=== PATIENT | male | born 2000 | race Caucasian/White ===

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

== ENCOUNTER 2022-08-03 09:19 | Emergency (ER) | payer OTHER, BC, SELFPAY ==
--- NOTE | ~2022-08-03 | XR_ITS ---
XR forearm RT 2V 08/03/2022 10:20 INDICATION: Right arm trauma. Pain. PROCEDURE: 2 views right forearm COMPARISON: No prior studies for comparison. FINDINGS: Fracture, dislocation or subluxation is not identified. The soft tissues appear within norm al limits. No foreign bodies are identified. IMPRESSION: 1: NO ACUTE BONE OR JOINT ABNORMALITY IDENTIFIED. Reviewed, dictated and finalized at location L.
--- NOTE | 2022-08-03 09:23 | ED.UPPEXIN ---
HPI - Extremity Injury (Upper) General Chief Complaint: Extremity Injury, Upper Stated Complaint: R FOREARM INJURY Time Seen by Provider: 08/03/22 09:29 Source: patient and RN notes reviewed Mode of arrival: ambulatory Limitations: no limitations History of Present Illness HPI narrative: 22-year-old male presents with concern for right forearm injury. Reports on Tuesday while at work a clothing rack fell on his forearm. Reports he had a small bruise. Reports over the last several days the bruise has gotten larger. He reports his entire forearm is tender. 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 He reports he used ice, he denies any other intervention. Related Data Home Medications Medication Instructions Recorded Confirmed sertraline 100 mg tablet 100 mg 09/29/20 Allergies Allergy/AdvReac Type Severity Reaction Status Date / Time No Known Allergies Allergy Verified 09/29/20 16:36 Review of Systems Review of Systems: CONSTITUTIONAL: Denies malaise, chills, sweats, or fever. SKIN: Denies rash or itching, open skin, laceration, abrasion, redness, warmth, swelling. MUSCULOSKELETAL: Reports right forearm pain and bruising NEUROLOGIC: Denies numbness, weakness All systems reviewed & are unremarkable except as noted in HPI and below PMFSH Comments At time of signature, agree with nursing past medical, surgical, social and family history. There is no relevant family history pertinent to the presenting complaint Exam Narrative: GENERAL: Well-appearing, well-nourished, and in no acute distress. HEAD: Normocephalic, atraumatic. EYES: PERRLA, conjunctivae clear NECK: Supple. CHEST: Speaks in full sentences. No respiratory distress. HEART: Regular rate and rhythm. Normal and equal peripheral pulses. EXTREMITIES: Right forearm has normal strength and sensation, grossly normal range of motion. No edema. Approximately 8 cm x 5 cm area of ecchymosis to the volar forearm. 5/5 strength with digit flexion and extension. Normal sensation with sensitivity to light touch and pain. General for tenderness. No open wounds, no skin tenting, no devitalized tissue or atrophy, no trophic changes, no obvious deformity, alignment normal, nearby joints and structures intact. Distal pulses palpable and equal bilaterally, skin warm, dry, pink. Capillary refill less than 3 seconds. SKIN: Warm, dry, no rash. NEURO: Alert and oriented x3. PSYCH: Normal mood and affect Course Course Emergency Course: Patient is aware of diagnosis, understands and agrees to treatment plan. Anticipatory guidance given. Patient agrees to follow-up as directed and is aware of reasons to seek care at the emergency department. Portions of this record may have been created with voice recognition software Level of Care: Express Care Visit Vital Signs Vital signs: Reviewed. MDM - Extremity Injury (Upper) MDM Narrative Medical decision making narrative: Patients injury and pain is consistent with musculoskeletal etiology. No signs of neurological or vascular compromise on exam. Compartments and tissues are soft without signs of compartment syndrome. Pain is felt appropriate for further evaluation on an outpatient basis. Imaging Data My impression: Images reviewed, interpreted by radiologist, agree, see report. Radiologist's impression: XR forearm RT 2V 08/03/2022 10:20 INDICATION: Right arm trauma. Pain. PROCEDURE: 2 views right forearm COMPARISON: No prior studies for comparison. FINDINGS: Fracture, dislocation or subluxation is not identified. The soft tissues appear within normal limits.? No foreign bodies are identified. IMPRESSION: 1: NO ACUTE BONE OR JOINT ABNORMALITY IDENTIFIED. Critical Care Time Critical Care Time Critical Care Time: No Discharge Plan Discharge Clinical Impression: Contusion of arm, right Patient Disposition: Home, Self-Care Condition: Stable Instructions: Contusion in Adults (ED) Addit
[2022-08-03 09:30] VITALS: BP 125/70; PULSE 76; RESP 16; TEMP 36.4; O2SAT 99
== END 2022-08-03 10:39 | disposition home or self-care (01) ==
PROVIDERS: Emergency Provider Nurse Practitioner
DX: S50.11XA Contusion of right forearm, initial encounter (principal); W20.8XXA Other cause of strike by thrown, projected or falling object, initial encounter; Y99.0 Civilian activity done for income or pay
CPT/HCPCS: 73090; 99213; G0463

== ENCOUNTER 2023-01-26 11:24 | Emergency (ER) | payer OTHER, BC, SELFPAY ==
[2023-01-26 11:34] VITALS: BP 104/70; PULSE 83; RESP 16; TEMP 36.3; O2SAT 100
--- NOTE | 2023-01-26 11:37 | ED.BACK ---
HPI - Back Pain/Injury General Chief Complaint: Back Pain/Injury Stated Complaint: L SIDED ABD PAIN/INJURY Time Seen by Provider: 01/26/23 11:32 Source: patient and RN notes reviewed History of Present Illness HPI Narrative: Patient is a 22-year-old male who presents to urgent care with complaints of left-sided abdominal pain. Patient states he was lifting a 60 lb tire at work and felt a pull on the left side of his abdomen. Patient states that he has not had any nausea or vomiting. Patient has not taken anything for pain prior to arrival. States it happened approximately 20 minutes prior to his arrival at the facility. Patient works at [employer]. No other acute complaints. No acute distress noted. Patient aware of the plan of care. Some parts of this dictation were generated by voice recognition software and may contain typographical and/or grammatical inaccuracies. Related Data Home Medications Medication Instructions Recorded Confirmed sertraline 100 mg tablet 100 mg PO DAILY 09/29/20 01/26/23 Allergies Allergy/AdvReac Type Severity Reaction Status Date / Time No Known Allergies Allergy Verified 01/26/23 11:34 Review of Systems Review of Systems: CONSTITUTIONAL: Denies fever, chills, or sweats. EYES: Denies visual changes, redness, or discharge. ENT: Denies rhinorrhea, congestion, sore throat, or otalgia. CARDIOVASCULAR: Denies chest pain, palpitations, or edema. RESPIRATORY: Denies cough or dyspnea. GASTROINTESTINAL: Reports of left lower abdominal discomfort GENITOURINARY: Denies dysuria or hematuria. SKIN: Denies rash or itching. MUSCULOSKELETAL: Denies back pain, joint pain, or myalgia. NEUROLOGIC: Denies headache, numbness, or weakness. All other systems reviewed are negative, except as documented in HPI. PMFSH Comments At the time of my signature, I reviewed and agree with the nursing past medical, surgical, social, and family history. There is no relevant family history pertinent to the patient complaint. Exam Narrative: GENERAL: This is a well-nourished, well-developed patient, in no apparent distress. HEAD: normocephalic, atraumatic. EYES: PERRL. Sclera clear/white. Vision is grossly intact. EARS: External ears normal NOSE: External nose normal with no obvious nasal discharge, nares without redness, no rhinorrhea. THROAT: Mucous membranes moist, posterior pharynx clear. NECK: Neck supple, GASTROINTESTINAL: Rebound tenderness to left lower quadrant with palpation. Bowel sounds within normal limits. Pain exacerbated with movement SKIN: warm, intact with no suspicious lesions or rash, good texture and turgor. NEURO: awake, alert, and oriented to person, place and time. There were no obvious focal neurologic abnormalities. EXTREMITIES: No clubbing, cyanosis, or edema. Course Course Level of Care: Express Care Visit Vital Signs Vital signs: Vital Signs Temperature 97.3 F L 01/26/23 11:34 Pulse Rate 83 01/26/23 11:34 Respiratory Rate 16 01/26/23 11:34 Blood Pressure 104/70 01/26/23 11:34 Pulse Oximetry 100 01/26/23 11:34 Temperature 97.3 F L 01/26/23 11:34 Pulse Rate 83 01/26/23 11:34 Respiratory Rate 16 01/26/23 11:34 Blood Pressure 104/70 01/26/23 11:34 Pulse Oximetry 100 01/26/23 11:34 Reviewed MDM - Back Pain/Injury MDM Narrative Medical decision making narrative: Advised patient to avoid any heavy lifting until pain has subsided. Use Tylenol/ibuprofen as needed. May use ice or heating pad. Avoid strenuous activity. If you need a release to work or restriction she will need to follow-up with your primary care doctor. If you develops any increase in symptoms associated with increased pain, nausea or vomiting-go to the emergency room. Follow-up with your PCP within 2-5 days or for worsening symptoms or failure to improve. Differential Diagnosis Differential diagnosis: Likely lumbar radiculopathy, sciatica, strain of lumbar region, r
== END 2023-01-26 11:48 | disposition home or self-care (01) ==
PROVIDERS: Emergency Provider Nurse Practitioner Family
DX: S39.011A Strain of muscle, fascia and tendon of abdomen, initial encounter (principal); X50.0XXA Overexertion from strenuous movement or load, initial encounter; Y99.0 Civilian activity done for income or pay
CPT/HCPCS: 99212; G0463

== ENCOUNTER 2023-06-17 11:00 | Emergency (ER) | payer OTHER, SELFPAY ==
[2023-06-17 11:10] VITALS: BP 121/79; PULSE 81; RESP 16; TEMP 36.7; O2SAT 100
--- NOTE | 2023-06-17 14:16 | ED.GENADULT ---
HPI - General Adult General Chief complaint: Dizziness Stated complaint: dizzy,shaky,SOB,arm/legs weak Source: patient, RN notes reviewed and old records reviewed Mode of arrival: ambulatory Limitations: no limitations History of Present Illness HPI narrative: 23 year old male to Express Care for dizziness, shaking, generalized weakness that started just prior to arrival. 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 Pt states he dropped the knife he was holding and had a near syncopal episode. Patient history of autism. Patient's mother picked patient up from work and brought him to [facility]. Patient denies any pertinent medical history, recent illness, allergies. Upon arrival patient denies chest pain, shortness of breath, visual changes, nausea or vomiting. Patient ambulated into express care. During registration patient is diaphoretic, pale. Respirations even and nonlabored. Patient and patient's mother that he needs to be seen in the emergency department and calling 911 for transport was recommended. Patient and mother declined EMS transport. Prefer travel by private vehicle to [facility]. Report called to Viviana OCASIO. Related Data Home Medications Medication Instructions Recorded Confirmed sertraline 100 mg tablet 100 mg PO DAILY 09/29/20 06/17/23 omeprazole magnesium 20 mg 20 mg PO DAILY 06/17/23 06/17/23 tablet,delayed release (Prilosec OTC) Allergies Allergy/AdvReac Type Severity Reaction Status Date / Time No Known Allergies Allergy Verified 06/17/23 11:11 Review of Systems Review of Systems: All systems reviewed & are unremarkable except as noted in HPI and below Constitutional: Constitutional: Reports as per HPI, Reports excessive sweating, Denies fever(s), Denies headache(s) and Reports weakness Eyes: Eyes: Reports as per HPI and Denies change in vision ENT: Reports system reviewed and no additional complaints, except as documented Cardiovascular: Cardiovascular: Reports as per HPI, Denies chest pain and Denies dyspnea Respiratory: Respiratory: Reports no additional respiratory complaints, Denies cough and Denies dyspnea Gastrointestinal: Gastrointestinal: Reports as per HPI, Denies abdominal pain, Denies change in stool character, Denies diarrhea, Denies nausea and Denies vomiting Musculoskeletal: Musculoskeletal: Reports as per HPI and Denies abnormal gait Neurologic: Reports as per HPI, Denies abnormal gait, Reports dizziness and Reports weakness Psychiatric: Psychiatric: Reports no additional psychiatric complaints PMFSH Comments At the time of my signature, I reviewed and agree with the nursing past medical, surgical, social, and family history. There is no relevant family history pertinent to the patient complaint. Exam Const: General: cooperative, no acute distress, alert, awake, anxious, diaphoretic, ill appearing, tired appearing, uncomfortable and well nourished Nutritional Appearance: well nourished Orientation/consciousness: patient oriented x3 Limitations: no limitations HENMT: Head: normal to inspection Ears: external ears normal Face/Nose/Sinus: Normal external nose present, Normal nares present, normal facial exam, No erythema and No edema Face and sinus: normal facial exam, no erythema and no edema Mouth: Yes Normal oral and palatal mucosa present Eyes: General: appearance normal, both eyes and all related structures Neck: Neck: normal visual inspection, full ROM and no meningeal signs Lymphatic: no lymphadenopathy noted and no lymphedema noted Chest: Chest palpation & inspection: normal inspection of the chest Resp: Effort & Inspection: normal respiratory effort and able to speak in complete sentences Auscultation: clear to auscultation bilaterally Cardio: Jugular venous distension: no JVD Rate: regular rate Rhythm: regular rhythm Ba
== END 2023-06-17 11:17 | disposition short-term general hospital (02) ==
LOC: EXPGOSH 11:05
PROVIDERS: Emergency Provider Nurse Practitioner Family
DX: R42 Dizziness and giddiness (principal); R55 Syncope and collapse; R61 Generalized hyperhidrosis; R53.1 Weakness; F84.0 Autistic disorder
CPT/HCPCS: 99212; G0463

== ENCOUNTER 2023-06-17 11:40 | Emergency (ER) | payer OTHER, SELFPAY ==
[2023-06-17] VITALS (12 sets, daily range): BP systolic 116–148; BP diastolic 59–94; PULSE 60–93; RESP 10–21; TEMP 36.1–36.7; O2SAT 97–100
--- NOTE | 2023-06-17 11:42 | ECG_ITS ---
Measurements Intervals [place] Rate: 68 P: 16 WV: 131 QRS: 43 QRSD: 121 T: 30 QT: 362 QTc: 386 Interpretive Statements SINUS RHYTHM RIGHT BUNDLE BRANCH BLOCK MINIMAL Q WAVES- INFERIOR LEADS BASELINE ARTIFACT- I, II, AVR ABNORMAL ECG NO PREVIOUS ECG AVAILABLE FOR COMPARISON Electronically Signed On 06-17-2023 12:00:25 CDT by Navid Feliciano D.O.
[2023-06-17 12:02] LABS: Basophils Percent Auto 0.4 % (0.2-1.2); Eosinophils Percent Auto 0.1 % (0-4.4); Hematocrit 50.4 % (42.0-52.0); Hemoglobin 16.5 g/dL (14.0-18.0); Immature Granulocyte Absolute 0.06 K/mm3 (0.00-0.031); Immature Granulocyte Percent A 0.7 % (0-0.5); Lymphocytes Absolute Auto 1.74 K/mm3 (0.9-3.2); Lymphocytes Percent Auto 20.5 % (18.3-44.2); Mean Corpuscular HGB Conc 32.7 g/dl (32-36); Mean Corpuscular Volume 82.6 fl (80-100); Mean Platelet Volume 10.8 fl (7.4-10.4); Monocytes Absolute Auto 0.8 K/mm3 (0.1-0.6); Monocytes Percent Auto 9.8 % (2.6-8.5); Neutrophils Absolute Auto 5.8 K/mm3 (1.3-6.7); Neutrophils Percent Auto 68.5 % (45.5-73.1); Platelet Count Result 213 k/mm3 (150-375); Red Cell Distribution Width 13.4 % (11.5-14.5); White Blood Count 8.5 K/mm3 (4.5-10.0)
[2023-06-17 12:10] LABS: Alanine Aminotransferase 52 U/L (6-50); Albumin Level 4.7 g/dL (3.5-5.1); Alkaline Phosphatase 63 U/L (38-126); Anion Gap 7 mmol/L (4-12); Aspartate Amino Transferase 34 U/L (17-59); Bilirubin,Total 0.6 mg/dL (0.2-1.3); Blood Urea Nitrogen 11 mg/dL (9-20); Calcium 9.7 mg/dL (8.4-10.2); Carbon Dioxide 28 mmol/L (22-30); Chloride 103 mmol/L (98-107); Estimated CRCL calculation 167 ml/min; Estimated Glomerular Filt Rate > 60; Glucose 122 mg/dL (65-110); Potassium 4.3 mmol/L (3.4-5.0); Sodium 138 mmol/L (137-145)
--- NOTE | 2023-06-17 12:22 | ED.DIZZY ---
HPI - Dizziness General Chief Complaint: Syncope Stated Complaint: near syncope from UC Time Seen by Provider: 06/17/23 11:56 History of Present Illness HPI Narrative: 23-year-old male presents emergency department for evaluation of near syncope. Patient reports he had 2 days of nausea and vomiting. While patient was at work today he felt dizzy and lightheaded. during examination patient is resting in bed reports he does still feel some dizziness. Related Data Home Medications Medication Instructions Recorded Confirmed sertraline 100 mg tablet 100 mg PO DAILY 09/29/20 06/17/23 omeprazole magnesium 20 mg 20 mg PO DAILY 06/17/23 06/17/23 tablet,delayed release (Prilosec OTC) Allergies Allergy/AdvReac Type Severity Reaction Status Date / Time No Known Allergies Allergy Verified 06/17/23 11:11 Review of Systems Review of Systems: All systems reviewed & are unremarkable except as noted in HPI and below Exam Narrative: APPEARANCE: Well appearing, no pain, no distress, well-nourished. HEAD: normocephalic, atraumatic. EYES: PERRLA/EOMI, conjunctivae clear. NOSE: Normal no drainage EARS:TMS clear with good light reflex. THROAT: Pharynx clear, no exudate. NECK: Supple. No adenopathy, no masses. RESPIRATORY: Airway patent, respirations nonlabored. Clear to auscultation bilaterally, no rales, rhonchi, wheezing. CARDIOVASCULAR: Regular rate and rhythm without murmurs rubs or gallops. ABDOMINAL: Soft, nontender, nondistended, normal bowel sounds MUSCULOSKELETAL: Moves all extremities. Strength/ROM intact, No edema, No calf tenderness. NEURO: Alert. Cranial nerves II through XII intact. Grossly intact SKIN: Warm, dry. Normal Color Course Course Emergency Course: patient felt improved with treatment and was discharged to Vital Signs Vital signs: Vital Signs Temperature 96.9 F L 06/17/23 11:45 Pulse Rate 73 06/17/23 11:45 Respiratory Rate 12 06/17/23 11:45 Pulse Oximetry 99 06/17/23 11:45 Oxygen Delivery Room Air 06/17/23 11:45 Temperature 98.0 F 06/17/23 14:30 Pulse Rate 73 06/17/23 14:30 Respiratory Rate 18 06/17/23 14:30 Blood Pressure 121/79 06/17/23 14:30 Pulse Oximetry 100 06/17/23 14:30 Oxygen Delivery Room Air 06/17/23 11:45 MDM - Dizziness MDM Narrative Medical decision making narrative: 23-year-old male present to the emergency department for evaluation after having a near syncopal episode at work today. On re-evaluation patient does feel improved. Patient is afebrile with no leukocytosis and a stable hemoglobin of 16.5, no acute abnormalities on the patient's CMP patient was negative for influenza RSV and for COVID. Patient was treated with a L of normal saline and does feel improved. Suspect dehydration secondary to his previous episodes of nausea and vomiting. Patient and family were updated on the results of the workup patient was advised to follow a clear liquid diet for the next 1-3 days and treat any additional nausea vomiting with Zofran. All questions concerns were addressed Differential Diagnosis Differential diagnosis: Likely orthostatic hypotension and other ( dehydration, nausea vomiting diarrhea, viral syndrome) Lab Data Attestation: I reviewed the patient's lab results. 06/17/23 11:51 06/17/23 11:51 Labs: Lab Results 06/17/23 06/17/23 Range/Units 11:51 12:24 WBC 8.5 (4.5-10.0) K/mm3 RBC 6.10 (4.6-6.20) M/mm3 Hgb 16.5 (14.0-18.0) g/dL Hct 50.4 (42.0-52.0) % MCV 82.6 (80-100) fl MCH 27.0 (26-34) pg MCHC 32.7 (32-36) g/dl RDW 13.4 (11.5-14.5) % Plt Count 213 (150-375) k/mm3 MPV 10.8 H (7.4-10.4) fl Immature Gran % (Auto) 0.7 H (0-0.5) % Neut % (Auto) 68.5 (45.5-73.1) % Lymph % (Auto) 20.5 (18.3-44.2) % Carver % (Auto) 9.8 H (2.6-8.5) % Eos % (Auto) 0.1 (0-4.4) % Baso % (Auto) 0.4 (0.2-1.2) % Lymph # (Auto) 1.74 (0.9-3.2)
[2023-06-17] MEDS: SODIUM CHLORIDE 0.9% IV 1,000 ML 999 ML IV CONT (12:28)
[2023-06-17 13:12] LABS: Influenza A QL RT-PCR Negative (Negative); Influenza B QL RT-PCR Negative (Negative); RSV RNA, RT-PCR Negative (Negative); SARS-CoV-2 RNA PCR Negative (Negative)
== END 2023-06-17 14:49 | disposition home or self-care (01) ==
PROVIDERS: Emergency Medicine; Emergency Provider Emergency Medicine
DX: R55 Syncope and collapse (principal); Z20.822 Contact with and (suspected) exposure to COVID-19; I45.10 Unspecified right bundle-branch block
CPT/HCPCS: 36415; 80053; 85025; 87637; 93005; 96360; 99284; J7030

== ENCOUNTER 2024-11-26 09:38 | Emergency (ER) | payer BC, SELFPAY ==
--- NOTE | 2024-11-26 09:41 | ED_ITS ---
HPI - General Adult General Chief complaint: Dental/Oral Stated complaint: Jaw locked up Time Seen by Provider: 11/26/24 09:54 Source: patient, RN notes reviewed and old records reviewed Mode of arrival: ambulatory Limitations: no limitations History of Present Illness HPI narrative: 24-year-old male presents to the [facility] with left jaw pain, at TMJ. States that started this morning. Did take 1 ibuprofen just prior to arrival. Related Data Home Medications ?Medication ?Instructions ?Recorded ?Confirmed ?Last Taken ?Type sertraline 100 mg tablet 100 mg PO DAILY 09/29/2011/12 Unknown History omeprazole magnesium 20 mg 20 mg PO DAILY 06/17/2311/12 Unknown History tablet,delayed release (Prilosec OTC) Allergies Allergy/AdvReac Type Severity Reaction Status Date / Time No Known Allergies Allergy Verified 11/26/24 09:50 Review of Systems 2 Review of Systems: All systems reviewed & are unremarkable except as noted in HPI and below Constitutional: Constitutional: Reports no additional constitutional complaints ENT: Reports as per HPI Cardiovascular: Cardiovascular: Reports no additional cardiovascular complaints, Denies chest pain and Denies dyspnea Respiratory: Respiratory: Reports no additional respiratory complaints, Denies chest congestion, Denies cough and Denies dyspnea Musculoskeletal: Musculoskeletal: Reports no additional musculoskeletal complaints Integumentary/Breasts: Skin/Breast: Reports system reviewed and no additional complaints, except as docu PMFSH Comments At the time of my signature, I reviewed and agree with the nursing past medical, surgical, social, and family history. There is no relevant family history pertinent to the patient complaint. Exam 2 Const: General: cooperative, healthy appearing, comfortable, no acute distress, well developed, alert and well nourished Nutritional Appearance: w ell nourished and obese Orientation/consciousness: patient oriented x3 L imitations: no limitations HENMT: Head: normal to inspection Head images: 1. Tenderness to palpation. Pain with opening and closing. Limited range of motion secondary to pain. No swelling. Denies trauma. Fair dentition Ears: hearing grossly normal bilaterally, external ears normal, TM's normal bilaterally, EAC's normal, mastoids normal and no periauricular adenopathy M outh: Yes Normal oral and palatal mucosa present, Yes lip normal, Yes tongue normal and Yes moist mucous membranes Throat: posterior oropharynx normal Eyes: General: appearance normal, both eyes and all related structures A lignment and Position: alignment normal Neck: Neck: normal visual inspection, full ROM, no lymphadenopathy and no meningeal signs Chest: Chest palpation & inspection: normal inspection of the chest Resp: Effort & Inspection: normal respiratory effort and able to speak in complete sentences Auscultation: clear to auscultation bilaterally, no crackles, no rales, no rhonchi and no wheezes Cardio: Rate: regular rate Skin: General skin exam: normal color and no rashes or lesions noted Neuro: General: patient oriented x3, gait normal, moves all extremities and no meningeal signs Cognition (Neuro): normal cognition Speech: normal speech Gait exam (Neuro): Normal gait present Extrem: General: normal to inspection, full ROM, capillary refill normal and normal gait Psych: Appearance: grossly normal and well kempt Mental Status: mental status grossly normal Speech and movement: Normal speech and movement present and Clear speech present Affect: normal affect Attitude: cooperative Course Course Level of Care: Express Care Visit Vital Signs Vital signs: Vital Signs Temperature 97.2 F L 11/26/24 09:49 Pulse Rate 80 11/26/24 09:49 Respiratory Rate 16 11/26/24 09:49 Blood Pressure 119/83 11/26/24 09:49 Pulse Oximetry 100 11/26/24 09:49 Oxygen Delivery Room Air 11/26/24 09:49 Temperature 97.2 F L 11/26/24 09:49 Pulse Rate 80 11/26/24 09:49 Respiratory Rate 16 11/26/24 09:49 Blood Pressure 119/83 11/26/24 09:49 Pulse Oximetry 100 11/26/24 09:49 Oxygen Delivery Room Air 11/26/24 09:49 Reviewed Medical Decision Making MDM Narrative Medical decision making narrative: Patient presents with his mom. Left TMJ tenderness. Reports swollen however note in swelling is noted. Denies any injury. Pain with opening and closing. Limited range of motion is noted. Patient is appropriate for outpatient treatment with close follow-up with a dental provider. Baclofen and ibuprofen recommended Discharge instructions reviewed with patient, as well as provided in writing per nursing staff. The instructions also include specific and strict return/GO TO THE ER as well as f/u information. All questions have been answered, and the patient deny any further questions with discharge and discharge plan. Some parts of this dictation were generated by voice recognition software and may contain typographical and/or grammatical inaccuracies. Differential Diagnosis Differential Diagnosis: TMJ, otitis media, dental infection Medical Records Medical records reviewed: Yes I reviewed the external patient's medical records. Vital Signs Vital Signs: Vital Signs Temperature 97.2 F L 11/26/24 09:49 Pulse Rate 80 11/26/24 09:49 Respiratory Rate 16 11/26/24 09:49 Blood Pressure 119/83 11/26/24 09:49 Pulse Oximetry 100 11/26/24 09:49 Oxygen Delivery Room Air 11/26/24 09:49 Temperature 97.2 F L 11/26/24 09:49 Pulse Rate 80 11/26/24 09:49 Respiratory Rate 16 11/26/24 09:49 Blood Pressure 119/83 11/26/24 09:49 Pulse Oximetry 100 11/26/24 09:49 Oxygen Delivery Room Air 11/26/24 09:49 Reviewed Lab Data Lab results reviewed: Yes I reviewed the patient's lab results. Labs: Reviewed Critical Care Time Critical Care Time Critical Care Time: No Discharge Plan Discharge Clinical Impression: TMJ (sprain of temporomandibular joint) Qualifiers: Encounter type: initial encounter Qualified Code(s): S03.40XA - Sprain of jaw, unspecified side, initial encounter Patient Disposition: Home Condition: Stable Instructions: Temporomandibular Disorder (ED) Additional Instructions: Follow-up with dental provider as soon as possible. Take Motrin and baclofen as prescribed For worsening symptoms please go directly to the emergency room Patient Language: Irish Prescriptions: New baclofen 10 mg tablet 10 mg PO TID PRN (Reason: muscle pain) Qty: 7 0RF ibuprofen 600 mg tablet 600 mg PO TID PRN (Reason: fever or pain) Qty: 30 0RF No Action omeprazole magnesium [Prilosec OTC] 20 mg Tablet,Delayed Release (Dr/Ec) 20 mg PO DAILY sertraline 100 mg tablet 100 mg PO DAILY Follow-up/Referrals: PHYSICIAN,[facility] [Primary Care Provider, Internal Medicine] Stand Alone Forms: Work/School Release IP Time of Disposition: 10:03
[2024-11-26 09:49] VITALS: BP 119/83; PULSE 80; RESP 16; TEMP 36.2; O2SAT 100
== END 2024-11-26 10:07 | disposition home or self-care (01) ==
PROVIDERS: Emergency Provider Nurse Practitioner
DX: S03.42XA Sprain of jaw, left side, initial encounter (principal); X58.XXXA Exposure to other specified factors, initial encounter; F84.0 Autistic disorder
CPT/HCPCS: 99213; G0463